=== PATIENT | female | born 1985 | race Caucasian/White ===

== ENCOUNTER 2021-08-24 13:12 | Emergency (ER) | payer OTHER ==
[~2021-08-24] VITALS: Ht 175.3 cm; Wt 56.7 kg
[2021-08-24 13:28] VITALS: BP 115/71
--- NOTE | 2021-08-24 13:30 | NUR ---
No tremors noted - NO obvious distress. Ambulatory gait even and steady Continously asking for food "Im hungry" DENIES suicidal ideation
--- NOTE | 2021-08-24 14:04 | NUR ---
URINE COLLECTED AND SENT TO LAB
--- NOTE | 2021-08-24 14:50 | NUR ---
PROVIDED RESOURCES FOR DETOX
--- NOTE | 2021-08-24 14:55 | NUR ---
PROVIDED FOOD TRAY. TOLERATED WELL
--- NOTE | 2021-08-24 14:57 | NUR ---
[facility] [phone]
--- NOTE | 2021-08-24 15:00 | NUR ---
Patient discharged to home in stable condition. Written and verbal after care instructions given. Patient verbalizes understanding of instruction.
== END 2021-08-24 15:00 | disposition home or self-care (01) ==
LOC: ER 13:34
DX: F13.239 Sedative, hypnotic or anxiolytic dependence with withdrawal, unspecified (principal)